=== PATIENT | female | born 1950 | race Caucasian/White ===

== ENCOUNTER 2017-01-10 18:06 | Emergency (ER) | payer BC ==
[~2017-01-10] VITALS: Ht 162.6 cm; Wt 53.5 kg
[~2017-01-10 18:06] MED LIST: ARMOUR
[2017-01-10 18:10] VITALS: BP_SYST 128
[2017-01-10 18:50] VITALS: BP_SYST 123
== END 2017-01-10 18:50 | disposition home or self-care (01) ==
LOC: SED 18:06
DX: H11.31 Conjunctival hemorrhage, right eye (principal); Z88.5 Allergy status to narcotic agent; Z88.6 Allergy status to analgesic agent; Z88.1 Allergy status to other antibiotic agents; Z85.3 Personal history of malignant neoplasm of breast; Z90.710 Acquired absence of both cervix and uterus
CPT/HCPCS: 99283